=== PATIENT | female | born 1985 | race Caucasian/White ===

== ENCOUNTER 2017-04-20 08:29 | Emergency (ER) | payer OTHER ==
[~2017-04-20] VITALS: Ht 154.9 cm; Wt 56.8 kg
[~2017-04-20 08:29] MED LIST: IBUP-1547 PO; LORA1TAB3 PO; NAPR220C15 PO
[2017-04-20] MEDS ORDERED: KETOROLAC TROMETHAMINE 10 MG TABLET PO ONE (10:15)
[2017-04-20 10:35] VITALS: BP 109/65
== END 2017-04-20 11:02 | disposition home or self-care (01) ==
LOC: EMS 08:32
DX: M54.2 Cervicalgia (principal); M25.511 Pain in right shoulder; F17.210 Nicotine dependence, cigarettes, uncomplicated
CPT/HCPCS: 99282; 99283

== ENCOUNTER 2017-08-08 09:33 | Emergency (ER) | payer OTHER ==
[~2017-08-08] VITALS: Ht 154.9 cm; Wt 58.2 kg
[~2017-08-08 09:33] MED LIST changes: -IBUP-1547 PO; +IBUP-2071 PO; -LORA1TAB3 PO; -NAPR220C15 PO
[2017-08-08] MEDS ORDERED: BACITRACIN 0.9 GM PACKET OINTMENT TP ONE (10:30)
[2017-08-08] MEDS ORDERED: PERTUSS(ACELL),DIPH,TET VAC/PF 0.5 ML VIAL IM ONE (10:30)
[2017-08-08] MEDS ORDERED: HYDROCODONE/ACETAMINOPHEN 5-325 MG TABLET PO ONE (11:00)
[2017-08-08 11:47] VITALS: BP 121/70
== END 2017-08-08 11:50 | disposition home or self-care (01) ==
LOC: EMS 09:36
DX: S61.412A Laceration without foreign body of left hand, initial encounter (principal); W45.8XXA Other foreign body or object entering through skin, initial encounter; Y93.89 Activity, other specified; Y92.89 Other specified places as the place of occurrence of the external cause; Y99.8 Other external cause status
CPT/HCPCS: 90471; 90715; 99284

== ENCOUNTER 2017-09-06 08:42 | Emergency (ER) | payer OTHER ==
[~2017-09-06] VITALS: Ht 154.9 cm; Wt 59.0 kg
[2017-09-06 09:46] VITALS: BP 117/72
== END 2017-09-06 10:42 | disposition home or self-care (01) ==
LOC: EMS 08:44
DX: J06.9 Acute upper respiratory infection, unspecified (principal); F17.210 Nicotine dependence, cigarettes, uncomplicated
CPT/HCPCS: 99281

== ENCOUNTER 2018-05-25 10:17 | Emergency (ER) | payer OTHER ==
[~2018-05-25] VITALS: Ht 154.9 cm; Wt 56.4 kg
[2018-05-25] MEDS ORDERED: KETOROLAC TROMETHAMINE 30 MG/ML VIAL IM ONE (12:30)
[2018-05-25] MEDS ORDERED: CEPHALEXIN MONOHYDRATE 500 MG CAPSULE PO ONE (12:30)
[2018-05-25] MEDS ORDERED: SULFAMETHOX/TRIMETH DS 800-160 MG/TABLET PO ONE (12:30)
[2018-05-25] MEDS ORDERED: LIDOCAINE HCL/PF 1% 5 ML VIAL INJ ONE (12:30)
[2018-05-25] MEDS ORDERED: HYDROCODONE/ACETAMINOPHEN 5-325 MG TABLET PO ONE (12:30)
[2018-05-25 14:08] VITALS: BP 109/71
== END 2018-05-25 14:22 | disposition home or self-care (01) ==
LOC: EMS 10:19
DX: N76.4 Abscess of vulva (principal); R10.30 Lower abdominal pain, unspecified; F17.210 Nicotine dependence, cigarettes, uncomplicated
CPT/HCPCS: 56405; 96372; 99284; 99406; J1885; J3490

== ENCOUNTER 2023-05-14 15:53 | Emergency (ER) | payer SELFPAY ==
[~2023-05-14] VITALS: Ht 154.9 cm; Wt 78.2 kg
[2023-05-14 16:06] VITALS: BP 126/74; PULSE 102; RESP 16; TEMP 98.3
[2023-05-14] MEDS ORDERED: GUAIFDM PO (16:15)
[2023-05-14] MEDS ORDERED: ACET-66 PO (16:15)
[2023-05-14 17:17] LABS: COVID AG,FIA SOURCE NASAL SWAB
[2023-05-14 17:45] LABS: INFLUENZA TYPE A NEGATIVE FOR TYPE A (NEGATIVE); INFLUENZA TYPE B NEGATIVE FOR TYPE B (NEGATIVE)
== END 2023-05-14 16:52 | disposition home or self-care (01) ==
LOC: EMS 15:58
DX: O99.513 Diseases of the respiratory system complicating pregnancy, third trimester (principal); J06.9 Acute upper respiratory infection, unspecified; J20.9 Acute bronchitis, unspecified; F17.210 Nicotine dependence, cigarettes, uncomplicated; Z87.440 Personal history of urinary (tract) infections; Z20.822 Contact with and (suspected) exposure to COVID-19; Z3A.33 33 weeks gestation of pregnancy
CPT/HCPCS: 99283; 87426; 87804; C9803